=== PATIENT | female | born 1980 | race Caucasian/White ===

== ENCOUNTER 2017-12-30 18:01 | Emergency (ER) | payer MEDICAID ==
[~2017-12-30] VITALS: Ht 162.6 cm; Wt 54.0 kg
[2017-12-30] MEDS ORDERED: HYDROcodone/acetaminophen 5mg/325mg tablet PO ONE (18:35)
[2017-12-30] MEDS ORDERED: ibuprofen tablet 400 MG TABLET PO ONE (18:35)
[2017-12-30] MEDS ORDERED: HYDR-3965 PO (18:40)
[2017-12-30 19:27] VITALS: BP 129/81
== END 2017-12-30 20:14 | disposition home or self-care (01) ==
LOC: EEVIPCON 18:02 → ER 18:02
DX: S42.022A Displaced fracture of shaft of left clavicle, initial encounter for closed fracture (principal); Z98.890 Other specified postprocedural states; F12.10 Cannabis abuse, uncomplicated; Y04.8XXA Assault by other bodily force, initial encounter; Y93.89 Activity, other specified; Y92.89 Other specified places as the place of occurrence of the external cause; Y99.8 Other external cause status
CPT/HCPCS: 73000; 99284; A4565

== ENCOUNTER 2018-04-12 14:46 | Emergency (ER) | payer MEDICAID ==
[~2018-04-12] VITALS: Ht 162.6 cm; Wt 58.0 kg
[~2018-04-12 14:46] MED LIST: LIDO700A32 TOP
[2018-04-12 15:42] LABS: CLARITY,URINE CLOUDY (Clear); GLUCOSE, URINE NEGATIVE (Neg); KETONES,URINE >=80 mg/dl (Neg); LEUKOCYTE ESTERASE ,URINE LARGE (Neg); NITRITES, URINE NEGATIVE (Neg); OCCULT BLOOD,URINE SMALL (Neg); PROTEIN,URINE NEGATIVE (Neg)
[2018-04-12 15:43] LABS: COLOR,URINE AMBER (Yellow); UA COLLECTION TYPE CLN CATCH MIDSTREAM
[2018-04-12 15:45] LABS: URINE HCG NEGATIVE (NEG)
[2018-04-12 15:49] LABS: BACTERIA,URINE 1+ /HPF (Neg); WBC,URINE TNTC /HPF (0-4)
[2018-04-12 15:50] LABS: MUCUS STRANDS MANY /LPF (Neg); SQUAMOUS EPITHELIAL CELL,UR FEW /LPF (FEW)
[2018-04-12] MEDS ORDERED: ACET-2119 PO (17:41)
[2018-04-12] MEDS ORDERED: CIPR-259 PO (17:41)
[2018-04-12] MEDS ORDERED: diphenhydrAMINE 50 mg/ml inj IV ONE (18:05)
[2018-04-12] MEDS ORDERED: proCHLORperazine 10 MG/2 ml inj IV ONE (18:05)
[2018-04-12] MEDS ORDERED: diphenhydrAMINE 50 mg/ml inj IM ONE (18:20)
[2018-04-12] MEDS ORDERED: proCHLORperazine 10 MG/2 ml inj IM ONE (18:20)
[2018-04-12 18:46] VITALS: BP 149/77
== END 2018-04-12 18:48 | disposition home or self-care (01) ==
LOC: ER 14:47
DX: N12 Tubulo-interstitial nephritis, not specified as acute or chronic (principal); M19.90 Unspecified osteoarthritis, unspecified site; F12.90 Cannabis use, unspecified, uncomplicated; Z98.890 Other specified postprocedural states; Z90.710 Acquired absence of both cervix and uterus; Z88.2 Allergy status to sulfonamides; Z79.899 Other long term (current) drug therapy
CPT/HCPCS: 81001; 81025; 87077; 87088; 87186; 99284; J0780; J1200

== ENCOUNTER 2018-08-12 13:09 | Emergency (ER) | payer MEDICAID ==
[~2018-08-12] VITALS: Ht 162.6 cm; Wt 66.2 kg
[2018-08-12 14:32] LABS: COLOR,URINE YELLOW (Yellow); UA COLLECTION TYPE CLN CATCH MIDSTREAM
[2018-08-12 14:33] LABS: CLARITY,URINE CLEAR (Clear); GLUCOSE, URINE NEGATIVE (Neg); KETONES,URINE NEGATIVE (Neg); LEUKOCYTE ESTERASE ,URINE TRACE (Neg); NITRITES, URINE NEGATIVE (Neg); OCCULT BLOOD,URINE LARGE (Neg); PH,URINE 7.5 (4.8-8.0); PROTEIN,URINE NEGATIVE (Neg); UROBILINOGEN,URINE 0.2 E.U/dL (0.2-1.0)
[2018-08-12 14:56] LABS: SQUAMOUS EPITHELIAL CELL,UR MODERATE /LPF (FEW)
[2018-08-12 14:57] LABS: RBC,URINE 50-100 /HPF (0-2)
[2018-08-12 14:59] LABS: BACTERIA,URINE FEW /HPF (Neg)
[2018-08-12] MEDS ORDERED: normal saline 1000ML IV soln IVB ONE (15:10)
[2018-08-12] MEDS ORDERED: ketorolac trometh. 30mg/ml inj. IV ONE (15:10)
[2018-08-12 15:21] LABS: BASOPHILS % (AUTO) 0.5 % (0-1); EOSINOPHILS # (AUTO) 0.4 X10'3 (0-0.9); EOSINOPHILS % (AUTO) 8.1 % (0-6); HEMATOCRIT 40.9 % (35.0-45.0); HEMOGLOBIN 13.8 g/dl (12.0-16.0); LYMPHOCYTES # (AUTO) 1.9 X10'3 (1.1-4.8); LYMPHOCYTES % (AUTO) 38.3 % (21-51); MEAN CORPUSCULAR HEMOGLOBIN 32.6 PG (27.0-31.0); MEAN CORPUSCULAR HGB CONC 33.8 % (33.0-36.5); MEAN CORPUSCULAR VOLUME 96.6 FL (78-98); MEAN PLATELET VOLUME 8.6 FL (7.4-10.4); MONOCYTES # (AUTO) 0.3 X10'3 (0-0.9); MONOCYTES % (AUTO) 6.7 % (2-12); NEUTROPHILS # (AUTO) 2.3 X10'3 (1.8-7.7); NEUTROPHILS % (AUTO) 46.4 % (42-75); PLATELET COUNT 326 X10'3 (140-440); RED BLOOD COUNT 4.24 X10'6 (4.20-5.60); RED CELL DISTRIBUTION WIDTH 13.1 % (11.5-14.5); WHITE BLOOD COUNT 4.9 X10'3 (4.5-11.0)
[2018-08-12 15:38] LABS: ALANINE AMINOTRANSFERASE 24 U/L (12-78); ALBUMIN/GLOBULIN RATIO 1.2 (1.1-1.5); ALKALINE PHOSPHATASE 70 IU/L (46-116); ANION GAP 11 (8-16); ASPARTATE AMINO TRANSFERASE 12 U/L (10-37); BILIRUBIN,TOTAL 0.2 MG/DL (0.1-1.0); BLOOD UREA NITROGEN 6 MG/DL (7-18); CHLORIDE 105 MMOL/L (99-107); GLUCOSE 91 MG/DL (70-104); POTASSIUM 4.1 MMOL/L (3.5-5.1); SODIUM 141 MMOL/L (135-145); TOTAL CARBON DIOXIDE 24.7 MMOL/L (24-32); TOTAL PROTEIN 7.4 G/DL (6.4-8.2); eGFR > 90 ML/MIN
[2018-08-12] MEDS ORDERED: CEPH-571 PO (15:41)
[2018-08-12] MEDS ORDERED: PHEN-824 PO (15:41)
[2018-08-12 15:42] VITALS: BP 122/82
[2018-08-12 15:53] LABS: URINE HCG NEGATIVE (NEG)
== END 2018-08-12 16:02 | disposition home or self-care (01) ==
LOC: ER 13:10
DX: N39.0 Urinary tract infection, site not specified (principal); M19.90 Unspecified osteoarthritis, unspecified site; F12.90 Cannabis use, unspecified, uncomplicated; Z90.710 Acquired absence of both cervix and uterus; Z79.899 Other long term (current) drug therapy
CPT/HCPCS: 36415; 80053; 81001; 81025; 85025; 87088; 96361; 96374; 99283; J1885; J7030

== ENCOUNTER 2019-03-10 12:43 | Emergency (ER) | payer MEDICAID ==
[~2019-03-10] VITALS: Ht 162.6 cm; Wt 61.4 kg
[~2019-03-10 12:43] MED LIST changes: +CEPH-571 PO; +PHEN-824 PO
[2019-03-10 12:52] VITALS: BP 105/70
[2019-03-10] MEDS ORDERED: TRAM50TA2 PO (13:02)
== END 2019-03-10 13:11 | disposition home or self-care (01) ==
LOC: ER 12:43
DX: K08.89 Other specified disorders of teeth and supporting structures (principal); M19.90 Unspecified osteoarthritis, unspecified site; F12.90 Cannabis use, unspecified, uncomplicated; Z90.710 Acquired absence of both cervix and uterus; Z79.899 Other long term (current) drug therapy
CPT/HCPCS: 99283

== ENCOUNTER 2024-05-05 16:01 | Emergency (ER) | payer MEDICAID ==
[~2024-05-05] VITALS: Ht 162.6 cm; Wt 68.4 kg
[2024-05-05] MEDS: diazepam 5mg tablet PO ONE (17:49)
[2024-05-05] MEDS: HYDROcodone/acetaminophen 10/325mg tab PO ONE (18:56)
[2024-05-05] MEDS: ibuprofen tablet 400 MG TABLET PO ONE (18:56)
[2024-05-05 19:50] VITALS: BP 110/73; PULSE 78; RESP 18; TEMP 98; O2SAT 97
== END 2024-05-05 19:51 | disposition home or self-care (01) ==
LOC: ER 16:01
DX: F43.10 Post-traumatic stress disorder, unspecified (principal); H57.11 Ocular pain, right eye; R51.9 Headache, unspecified; F41.9 Anxiety disorder, unspecified; M19.90 Unspecified osteoarthritis, unspecified site; F12.90 Cannabis use, unspecified, uncomplicated; Z79.2 Long term (current) use of antibiotics; Z79.899 Other long term (current) drug therapy; Z90.710 Acquired absence of both cervix and uterus; Z98.890 Other specified postprocedural states; Z72.89 Other problems related to lifestyle; X58.XXXA Exposure to other specified factors, initial encounter; Y93.89 Activity, other specified; Y92.89 Other specified places as the place of occurrence of the external cause; Y99.8 Other external cause status
CPT/HCPCS: 70450; 99284